=== PATIENT | female | born 1950 | race Caucasian/White ===

== ENCOUNTER 2017-03-16 18:43 | Emergency (ER) | payer OTHER, BC ==
[~2017-03-16] VITALS: Ht 165.1 cm; Wt 63.9 kg
[~2017-03-16 18:43] MED LIST: ALAVERT10 MG PO; ASCOMP WITH CO1 EACH; ASCOMP WITH CO1 EACH PO; BUPROPION XL300 MG; BUPROPION XL300 MG PO; CITALOPRAM HBR20 MG; CITALOPRAM HBR20 MG PO; FIORICET,ESG1 TABLET PO; HYDROCODON-ACE1 EAC1; HYDROCODON-ACE1 EAC1 PO; LORAZEPAM1 MG; LORAZEPAM1 MG PO; MELOXICAM15 MG PO; ZANAFLEX4 MG; ZANAFLEX4 MG PO; ZOLPIDEM TARTRA10 MG; ZOLPIDEM TARTRA10 MG PO
[2017-03-16 21:50] VITALS: BP 134/61
== END 2017-03-16 22:02 | disposition home or self-care (01) ==
LOC: EME 18:43
DX: G43.909 Migraine, unspecified, not intractable, without status migrainosus (principal); Z87.891 Personal history of nicotine dependence; Z90.710 Acquired absence of both cervix and uterus; Z88.0 Allergy status to penicillin; Z88.2 Allergy status to sulfonamides
CPT/HCPCS: 99281; 99284; J1100; J1200; J2765

== ENCOUNTER 2017-08-07 10:42 | Emergency (ER) | payer BC, OTHER ==
[~2017-08-07] VITALS: Ht 165.1 cm; Wt 62.0 kg
[2017-08-07 15:24] VITALS: BP 126/78
== END 2017-08-07 15:26 | disposition home or self-care (01) ==
LOC: EME 10:42
DX: G43.909 Migraine, unspecified, not intractable, without status migrainosus (principal); F32.9 Major depressive disorder, single episode, unspecified; Z88.2 Allergy status to sulfonamides; Z88.0 Allergy status to penicillin; Z87.891 Personal history of nicotine dependence
CPT/HCPCS: 99281; 99284; J0780; J1885; J7030